=== PATIENT | female | born 1985 | race Caucasian/White ===

== ENCOUNTER 2019-09-14 11:17 | Outpatient (CLI) | payer BC ==
--- NOTE | 2019-09-14 11:59 | XRAY Report ---
Reason: MID-LOW BACK PAIN Procedure Date: 09/14/2019 Accession Number: [id number] / [id number] Procedure: XR - Thoracic Spine 2 View CPT Code: Final Report FULL RESULT: PROCEDURE: Thoracic Spine 2 View INDICATIONS: MID-LOW BACK PAIN TECHNIQUE: 3 views of the thoracic spine were acquired. COMPARISON: None. FINDINGS: Bones: No fractures or dislocations. No suspicious bony lesions. Visualized ribs are intact. Soft tissues: No paravertebral stripe thickening. IMPRESSION: No acute fracture. No osseous lesion. If symptoms and/or clinical suspicion for pathology continue, further assessment with repeat plain films, or advanced imaging (e.g., CT, MRI, or bone scan) is recommended for further assessment. Reviewed by: Yoni Magallanes MD on 09/14/2019 11:58 AM PDT Approved by: Yoni Magallanes MD on 09/14/2019 11:58 AM PDT Station ID: [id number]
--- NOTE | 2019-09-14 12:00 | XRAY Report ---
Reason: MID-LOW BACK PAIN Procedure Date: 09/14/2019 Accession Number: [id number] / [id number] Procedure: XR - Lumbar Spine 2 View CPT Code: Final Report FULL RESULT: PROCEDURE: Lumbar Spine 2 View INDICATIONS: MID-LOW BACK PAIN TECHNIQUE: 3 views of the lumbar spine were acquired. COMPARISON: None. FINDINGS: Bones: 5 [id number] vertebrae are present. There is normal bony alignment. No vertebral body compression fractures. No suspicious bony lesions. Soft tissues: Overlying bowel gas pattern is normal. No suspicious soft tissue calcifications. IMPRESSION: No acute fracture. No osseous lesion. If symptoms and/or clinical suspicion for pathology continue, further assessment with repeat plain films, or advanced imaging (e.g., CT, MRI, or bone scan) is recommended for further assessment. Reviewed by: Yoni Magallanes MD on 09/14/2019 11:58 AM PDT Approved by: Yoni Magallanes MD on 09/14/2019 11:58 AM PDT Station ID: [id number]
== END 2019-09-14 11:18 | disposition home or self-care (01) ==
LOC: DI 11:17
PROVIDERS: ATTEND Physician Assistant Medical
DX: M54.5 Low back pain (principal)
CPT/HCPCS: 72070; 72100